=== PATIENT | female | born 1945 | race Caucasian/White ===

== ENCOUNTER 2022-12-10 11:46 | Emergency (ER) | payer MEDICARE, OTHER, SELFPAY ==
[2022-12-10 11:49] VITALS: BP 145/72; PULSE 56; RESP 18; TEMP 36.5; O2SAT 98; BMI 23.4
--- NOTE | 2022-12-10 12:15 | ED.FEMALEGU1 ---
HPI - Female Genitourinary General Chief complaint: Urogenital-Female Stated complaint: POSS UTI Time Seen by Provider: 12/10/22 11:59 Source: other Source comment: EMS Mode of arrival: ambulance Limitations: altered mental status and other Limitations comment: Previous stroke with aphasia and right side weakness. pt unable to answer questions appropriately. 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 is coming to us by the EMS after she had a concern by her for frequency of urination, no abdominal pain no fever no chills no other complaints the patient have Adult Protective Services that is visiting them although I did speak with Adult Protective Services and they do not have any concern for abuse right now but they called the EMS to come and get the patient because of the frequency of urination The patient herself cannot give a full history although she is able to say yes or no to all the questions and she is denying any complaints Related Data Allergies Allergy/AdvReac Type Severity Reaction Status Date / Time No Known Drug Allergies Allergy Verified 12/10/22 14:38 Review of Systems ROS Status of ROS 10 or more systems reviewed and unremarkable except as noted in history and below Exam Narrative Exam Narrative: Nurses notes and vital signs reviewed and patient is not hypoxic. General: Well-appearing and in no apparent distress. Skin: Warm, dry, no pallor noted. No rash. Head: Normocephalic, atraumatic. Neck: Supple, non-tender. Eye: Pupils are equal, round and EOMI. No scleral icterus. Ears, Nose, Mouth, and Throat: TM are clear, no nasal mucosal hypertrophy. Oral mucosa is moist, no posterior oropharynx erythema, uvula is mid-line Cardiovascular: Regular Rate and Rhythm without murmur, gallop or rub. Respiratory: No accessory muscle use or respiratory distress. Lungs are clear to auscultation, no wheezing, rales or rhonchi Chest Wall: no tenderness Back: No midline thoracic or lumbar vertebral tenderness. No CVA tenderness Musculoskeletal: normal ROM, no calf or popliteal tenderness, no lower extremity edema/swelling GI: Abdomen is soft, non-distended. Normal bowel sounds. No masses appreciated. No tenderness to palpation. No rebound, guarding, or rigidity noted. Neurological: The patient have aphasia she have a also remaining weakness from the stroke on the right upper and lower extremity with some atrophy have an ulcer in her right forearm that is healing measuring 0.5 cm in diameter Constitutional Vital Signs, click to edit/add: Last Vital Signs Temp 97.7 F 12/10/22 11:49 Pulse 70 12/10/22 15:23 Resp 16 12/10/22 15:23 BP 138/70 12/10/22 15:23 Pulse Ox 97 12/10/22 15:23 O2 Del Method Room Air 12/10/22 11:49 Course Vital Signs Vital signs: Vital Signs Temperature 97.7 F 12/10/22 11:49 Pulse Rate 56 L 12/10/22 11:49 Respiratory Rate 18 12/10/22 11:49 Blood Pressure 145/72 H 12/10/22 11:49 Pulse Oximetry 98 12/10/22 11:49 Oxygen Delivery Method Room Air 12/10/22 11:49 Temperature 97.7 F 12/10/22 11:49 Pulse Rate 70 12/10/22 15:23 Respiratory Rate 16 12/10/22 15:23 Blood Pressure 138/70 12/10/22 15:23 Pulse Oximetry 97 12/10/22 15:23 Oxygen Delivery Method Room Air 12/10/22 11:49 MDM - Female Genitourinary MDM Narrative Medical decision making narrative: CBC chemistry and urinalysis showed no acute significant pathology the patient will be discharged home to continue supportive care at home She have a history of thrombocytopenia and previous blood work-up was which seen in this blood work-up today The patient is to follow up with primary care physician in next 2-3 days or to return to the emergency department should any of the signs or symptoms worsen or new symptoms develop. The patient agrees with the following Diagnosis and Treatment plan and the patient will be discharged home. Lab Data Labs: Lab Results 12/10/22 12/10/22 Range/Units 12:48 13:11 WBC 3.2 L (4.0-11.0) 10^3/uL RBC 4.32 (4.20-5.40) 10^6/uL Hgb 14.2 (12.0-16.0) g/dL Hct 41.6 (36.0-48.0) % MCV 96.3 (81.0-99.0) fL MCH 32.9 (26.7-34.0) pg MCHC 34.1 (29.9-35.2) g/dL RDW 14.1 (11.0-15.0) % Plt Count 55 L (150-450) 10^3/uL MPV 10.5 (9.5-13.5) fL Seg Neuts % (Manual) 63.0 Lymphocytes % (Manual) 24.0 (20.5-60.0) % Monocytes % (Manual) 9.0 (1.7-12.0) % Eosinophils % (Manual) 4.0 (0.9-7.0) % Basophils % (Manual) 0.0 L (0.2-2.0) % Neutrophils # (Manual) 2.01 (1.4-6.5) 10^3/uL Lymphocytes # (Manual) 0.76 L (1.20-3.80) 10^3/uL Monocytes # (Manual) 0.28 L (0.30-0.80) 10^3/uL Eosinophils # (Manual) 0.12 (0.00-0.70) 10^3/uL Basophils # (Manual) 0.00 (0.00-0.10) 10^3/uL Sodium 137 (136-145) mmol/L Potassium 4.3 (3.5-5.1) mmol/L Chloride 109 H (98-107) mmol/L Carbon Dioxide 28.9 (21.0-32.0) mmol/L Anion Gap 3.4 BUN 18.0 (7.0-18.0) mg/dL Creatinine 0.71 (0.55-1.02) mg/dL Est GFR ( Amer) >60 (>=60) Est GFR (Non-Af Amer) >60 (>=60) BUN/Creatinine Ratio 25.4 Glucose 87 (74-106) mg/dL Calcium 8.8 (8.5-10.1) mg/dL Total Bilirubin 1.2 H (0.2-1.0) mg/dL AST 45 H (15-37) U/L ALT 46 (14-59) U/L Alkaline Phosphatase 102 (46-116) U/L Total Protein 7.1 (6.4-8.2) g/dL Albumin 3.4 (3.4-5.0) g/dL Globulin 3.7 g/dL Albumin/Globulin Ratio 0.9 Urine Color Lt. yellow (YELLOW) Urine Clarity Clear (CLEAR) Urine pH 6.0 (5.0-9.0) Ur Specific [place] 1.010 (1.005-1.025) Urine Protein Negative (NEG/TRACE) mg/dL Urine Glucose (UA) Negative (NEGATIVE) mg/dL Urine Ketones Negative (NEGATIVE) mg/dL Urine Occult Blood Small A (NEGATIVE) Urine Nitrite Negative (NEGATIVE) Urine Bilirubin Negative (NEGATIVE) Urine Urobilinogen 0.2 (0.2-1.0) EU/dL Ur Leukocyte Esterase Negative (NEGATIVE) Urine RBC 0-2 (0-2) #/HPF Urine WBC None seen (NONE SEEN) #/HPF Ur Squamous Epith Cells Few A (NONE/RARE) #/LPF Urine Bacteria None seen (NONE SEEN) #/HPF Urine Mucus Trace A (NONE SEEN) Ur Culture Indicated? No Discharge Plan Discharge Chief Complaint: Urogenital-Female Clinical Impression: Frequency of micturition Patient Disposition: Home, Self-Care Time of Disposition Decision: 14:27 Condition: Good Mode of Transportation: Private Vehicle Instructions: Urinary Urgency and Frequency (DC) Stand Alone Forms: Portal Instructions Referrals: Physician,Non-Staff, [Primary Care Provider] - 1 week Discharge Date/Time: 12/10/22 16:25
[2022-12-10 13:28] LABS: Hematocrit 41.6 % (36.0-48.0); Hemoglobin 14.2 g/dL (12.0-16.0); Mean Corpuscular HGB Conc 34.1 g/dL (29.9-35.2); Mean Corpuscular Hemoglobin 32.9 pg (26.7-34.0); Mean Corpuscular Volume 96.3 fL (81.0-99.0); Mean Platelet Volume 10.5 fL (9.5-13.5); Platelet Count 55 10^3/uL (150-450); Red Blood Count 4.32 10^6/uL (4.20-5.40); Red Cell Distribution Width 14.1 % (11.0-15.0); White Blood Count 3.2 10^3/uL (4.0-11.0)
[2022-12-10 13:30] LABS: Alanine Aminotransferase 46 U/L (14-59); Albumin Globulin Ratio 0.9; Albumin Level 3.4 g/dL (3.4-5.0); Alkaline Phosphatase 102 U/L (46-116); Anion Gap 3.4; Aspartate Amino Transferase 45 U/L (15-37); BUN Creatinine Ratio 25.4; Bilirubin Total 1.2 mg/dL (0.2-1.0); Calcium 8.8 mg/dL (8.5-10.1); Carbon Dioxide 28.9 mmol/L (21.0-32.0); Chloride 109 mmol/L (98-107); Estimated GFR (African America >60 (>=60); Estimated GFR (Non-African Ame >60 (>=60); Globulin 3.7 g/dL; Glucose 87 mg/dL (74-106); Potassium 4.3 mmol/L (3.5-5.1); Sodium 137 mmol/L (136-145); Total Protein 7.1 g/dL (6.4-8.2)
[2022-12-10 13:45] LABS: Bilirubin Urine NEGATIVE (NEGATIVE); Blood Urine SMALL (NEGATIVE); Clarity Urine CLEAR (CLEAR); Color Urine LT. YELLOW (YELLOW); Glucose Urine UA NEGATIVE (NEGATIVE); Ketones Urine NEGATIVE (NEGATIVE); Leukocyte Esterase Urine NEGATIVE (NEGATIVE); Nitrite Urine NEGATIVE (NEGATIVE); Protein Urine NEGATIVE (NEG/TRACE); Urobilinogen Urine 0.2 EU/dL (0.2-1.0)
[2022-12-10 14:12] LABS: Urine Microscopic Indicated YES; WBC Urine NONE SEEN #/HPF (NONE SEEN)
[2022-12-10 14:13] LABS: Bacteria Urine NONE SEEN #/HPF (NONE SEEN); Mucus Urine TRACE (NONE SEEN); RBC Urine 0-2 #/HPF (0-2); Squamous Epithelial Cell Urine FEW #/LPF (NONE/RARE)
[2022-12-10 14:14] LABS: Urine Culture Indicated NO
[2022-12-10 14:34] LABS: Eosinophils Absolute Manual 0.12 10^3/uL (0.00-0.70); Lymphocytes Absolute Manual 0.76 10^3/uL (1.20-3.80); Monocytes Absolute Manual 0.28 10^3/uL (0.30-0.80); Segmented Neut Absolute Manual 2.01 10^3/uL (1.4-6.5)
[2022-12-10] MEDS: BACITRACIN 0.9 GM PACKET 1 PACKET TOPICAL (14:38)
--- NOTE | 2022-12-10 15:03 | SWNOTE1 ---
SW received call from ER nurse and pt and need a ride home. Nursing has called several people and nobody available to get them. SW called trips and they can transport both home and will be here between 4:00-4:30. LIANE let ER nurse know.
[2022-12-10 15:23] VITALS: BP 138/70; PULSE 70; RESP 16; O2SAT 97
== END 2022-12-10 16:25 | disposition home or self-care (01) ==
PROVIDERS: Emergency Provider Emergency Medicine
DX: R35.0 Frequency of micturition (principal); I69.320 Aphasia following cerebral infarction; I69.351 Hemiplegia and hemiparesis following cerebral infarction affecting right dominant side
CPT/HCPCS: 36415; 80053; 81001; 85027; 99284